=== PATIENT | male | born 1960 | race Caucasian/White ===

== ENCOUNTER → 2021-02-16 | Outpatient (CLI) | payer OTHER, BC | LOC: M OPCLI4PR 08:00 | PROVIDERS: ATTEND Physician Assistant | DX: U07.1 COVID-19 (principal); Z53.20 Procedure and treatment not carried out because of patient's decision for unspecified reasons ==

== ENCOUNTER → 2023-02-27 | Outpatient (REF) | payer BC | LOC: M SFHCADAM 12:39 | PROVIDERS: ATTEND Physician Assistant | DX: Z53.9 Procedure and treatment not carried out, unspecified reason (principal); E11.9 Type 2 diabetes mellitus without complications; R03.0 Elevated blood-pressure reading, without diagnosis of hypertension; C34.92 Malignant neoplasm of unspecified part of left bronchus or lung; Z90.5 Acquired absence of kidney; R74.8 Abnormal levels of other serum enzymes ==

== ENCOUNTER → 2023-12-11 | Outpatient (REF) | payer BC ==
[2023-12-11 15:51] LABS: CREATININE, URINE 27.3 MG/DL
[2023-12-11 15:52] LABS: MALB URINE SIEMENS < 3.0 MG/L; MAU/CREAT RATIO 10.9 MCG/MG (0.0-30.0)
== END ==
LOC: M LAB REF 15:05
PROVIDERS: ATTEND Nurse Practitioner Family
DX: E09.9 Drug or chemical induced diabetes mellitus without complications (principal)